=== PATIENT | male | born 1960 | race Caucasian/White ===

== ENCOUNTER 2023-10-10 09:08 | Day surgery (SDC) | payer BC, OTHER ==
[2023-10-10] MEDS: Lactated Ringers 1,000 ML IV SCH (09:34)
[2023-10-10] MEDS ORDERED: Sodium Chloride 0.9% 10 ML Syringe FLUSH PRN (10:30)
[2023-10-10] MEDS ORDERED: Propofol 200 MG/20 ML SDV ONE (10:52)
== END 2023-10-10 12:43 | disposition home or self-care (01) ==
LOC: KA.SDS 09:08
PROVIDERS: ATTEND Family Medicine
DX: Z12.11 Encounter for screening for malignant neoplasm of colon (principal); D12.3 Benign neoplasm of transverse colon; K57.30 Diverticulosis of large intestine without perforation or abscess without bleeding; K64.8 Other hemorrhoids; K62.1 Rectal polyp; E66.3 Overweight; N40.1 Benign prostatic hyperplasia with lower urinary tract symptoms; R39.12 Poor urinary stream; M25.50 Pain in unspecified joint; M72.0 Palmar fascial fibromatosis [Dupuytren]; M25.40 Effusion, unspecified joint; F10.90 Alcohol use, unspecified, uncomplicated; F17.210 Nicotine dependence, cigarettes, uncomplicated; Z68.28 Body mass index [BMI] 28.0-28.9, adult; Z79.899 Other long term (current) drug therapy
CPT/HCPCS: 00811; J2704; J3490; J7120